=== PATIENT | female | born 1975 | race Caucasian/White ===

== ENCOUNTER 2024-06-12 07:56 | Outpatient (CLI) | payer OTHER, SELFPAY ==
--- NOTE | ~2024-06-12 | US_ITS ---
US pelvic complete w TV Ordering provider: Marcelino Mckeon, History: . dysfunctional uterine bleeding . Comparison: None. Technique: Transabdominal and endovaginal ultrasound of the pelvis (Doppler ultrasound interrogation techniques used as needed for this exam.) FINDINGS: CERVIX: Nabothian cysts. UTERUS: Measures 10.3x 6x 5.6 cm in length which is within normal limits and is anteverted. Hypoecho ic area is seen in the endometrial cavity with echogenic ring measuring 1 cm. Multiple Fibroids seen in the uterus measuring around 2 cm. ENDOMETRIUM: Normal in thickness measuring 15.4 mm. No endometrial cysts or fluid. CUL DE SAC: No free fluid. RIGHT OVARY: Normal in size measuring 2.6x 2.4x 2 cm. Normal echotexture. Doppler vascular flow prese nt. LEFT OVARY: Normal in size measuring 3.1x 2.3 x 1.6 cm. Normal echotexture. Doppler vascular flow pre sent. ADNEXA: Left adnexal cyst measuring 2 x 1.7 x 1.5 cm. IMPRESSION: Hypoechoic area with hyperechoic surrounding is seen in the endometrial cavity which may be a polyp o r fibroid. Follow-up advised. Multiple fibroids. Nabothian cysts. Left ovarian cyst. Otherwise, christin l pelvic ultrasound. Reviewed, dictated and finalized at location A. IMPRESSION: Hypoechoic area with hyperechoic surrounding is seen in the endometrial cavity which may be a polyp or fibroid. Follow-up advised. Multiple fibroids. Nabothia n cysts. Left ovarian cyst. Otherwise, normal pelvic ultrasound.
== END 2024-06-12 07:57 ==
PROVIDERS: PCP Family Medicine; Visit Provider Family Medicine
DX: N93.8 Other specified abnormal uterine and vaginal bleeding (principal); R93.89 Abnormal findings on diagnostic imaging of other specified body structures
CPT/HCPCS: 76830; 76856

== ENCOUNTER 2024-06-15 09:59 | Outpatient (CLI) | payer OTHER, SELFPAY ==
[2024-06-15 10:29] LABS: Hematocrit 37.8 % (37.0-47.0); Hemoglobin 12.1 g/dL (12.0-15.0); Mean Corpuscular Hemoglobin 29.5 pg (26-34); Mean Corpuscular Volume 92.2 fl (80-100); Mean Platelet Volume 10.3 fl (7.4-10.4); Platelet Count Result 266 k/mm3 (150-375); Red Cell Distribution Width 13.4 % (11.5-14.5); White Blood Count 4.5 K/mm3 (4.5-10.0)
[2024-06-15 10:54] LABS: Albumin Level 4.3 g/dL (3.5-5.1); Anion Gap 8 mmol/L (4-12); Blood Urea Nitrogen 15 mg/dL (7-17); Calcium 9.2 mg/dL (8.4-10.2); Carbon Dioxide 27 mmol/L (22-30); Chloride 102 mmol/L (98-107); Estimated Glomerular Filt Rate > 60; Glucose 93 mg/dL (65-110); Potassium 5.1 mmol/L (3.4-5.0); Sodium 137 mmol/L (137-145)
[2024-06-15 12:10] LABS: Iron 178 ug/dL (37-170)
[2024-06-16 00:15] LABS: Prealbumin 22.2 mg/dL (17.6-36.0)
[2024-06-19 18:23] LABS: Vitamin B1 7 nmol/L (8-30)
== END 2024-06-15 10:00 | disposition home or self-care (01) ==
PROVIDERS: PCP Family Medicine; Visit Provider Surgery Plastic and Reconstructive Surgery
DX: R63.4 Abnormal weight loss (principal)
CPT/HCPCS: 36415; 80048; 82040; 83540; 84134; 84425; 85027

== ENCOUNTER 2024-06-29 00:01 | Day surgery (SDC) | payer OTHER, SELFPAY ==
--- NOTE | 2024-06-21 16:38 | SUR.PREOP ---
Report to the Outpatient Waiting Room, entrance under the green pavilion located off [facility], at time 0600 on date 06/29/24. Planned Procedure Time: 0730. Time changes happen often and if your time is changed the preop area will call you the afternoon before. - You and your visitor will be asked to self-screen and do not enter if you have any COVID symptoms. - A mask is optional within the hospital at this time. Patients may have clear liquids (water, carbonated beverages, clear teas, apple juice) until 3 hours prior to surgery with a maximum of 20 ounces. - NO CLEAR LIQUIDS AFTER 0430 - No food from midnight until time of surgery - Infants may have breast milk until 4 hours before surgery, formula 6 hours prior to surgery. - Children will be allowed to drink immediately following surgery. If applicable, please bring a bottle or sippy cup to assist with drinking. Juice, water, soda, and popsicles are readily available. For infants on formula, please bring formula the day of surgery. Pacifiers are allowed. Take the following medications with a SIP of water the morning of surgery: N/A DO NOT STOP ANY OF YOUR OTHER PRESCRIPTION MEDICATIONS PRIOR TO SURGERY ?EXCEPT THE FOLLOWING Medications to discontinue per physician N/A Date to take last dose Please no make-up, nail zimbabwean, hairspray, perfume, deodorant, or body powder the day of surgery. No jewelry (including any body piercings) or valuables the day of surgery, leave them at home. Please take a shower or bath the night before, or the morning of, surgery with an antibacterial soap. Wear comfortable, loose fitting clothing. Children are encouraged to wear pajamas. - Jewelry must be removed prior to entering the operating room. Rings and piercings that are not removed may be cut off. - The hospital will not accept responsibility for valuables. - Please leave all valuables, including medications, at home the day of surgery. If you are going home after surgery, a licensed dedicated driver must drive you home. - NO public transportation without another adult if you receive anesthesia. - We recommend that an adult stay with you for 24 hours following discharge. - We also recommend that you do not drive, make important decision, drink alcoholic beverages, or take any drugs that were not prescribed by your health care provider for at least 24 hours after your discharge time. For Pediatric surgeries, we recommend two adults accompany the child home. Follow any additional instructions given to you from your surgeon. If you or anyone in your household have experienced Covid symptoms in the past week, please notify your surgeon or the nurse liaison at the phone number below for possible testing. Telephone instructions given to TAYLER GRAHAM and asked if any additional questions and then verbalized understanding. Patient advised to call surgeon office or pre surgery nurse liaison [phone] if any additional questions.
[2024-06-21 16:49] VITALS: BMI 30.3
[2024-06-29] VITALS (10 sets, daily range): BP systolic 103–116; BP diastolic 67–76; PULSE 66–78; RESP 12–20; TEMP 36.2–36.9; O2SAT 94–100; BMI 30.7
[2024-06-29 12:23] LABS: Urine Cotinine NEGATIVE
--- NOTE | 2024-06-29 12:35 | WPDHPUPDATE1 ---
History and Physical Update Update Date/Time: 06/29/24 12:35 History and Physical has been reviewed, including an updated exam of the patient. There are NO changes in the patient's condition. Risks, benefits, and alternatives have been discussed and questions answered. Patient agrees to proceed with procedure.
--- NOTE | 2024-06-29 12:39 | P.PNAN_ITS ---
Anes - Initial Pre Proc Eval Procedure: Operation Date: 06/29/24 14:30 Proposed Procedures p Bilateral Breast Augmentation, - Ajith Kim MD s Bilateral Breast Mastopexy - Ajith Kim MD Date/Time: 06/29/24 12:39 Surgeon: Ajith Kim MD Pre Op Diagnosis: breast ptosis, micromastia Patient Data Age: 49 Gender: F Height: 1.68 m Weight: 85.3 kg Allergies Allergy/AdvReac Type Severity Reaction Status Date / Time No Known Allergies Verified 06/29/24 12:35 Home Medications Medication Instructions Recorded Confirmed Type methylphenidate HCl 10 mg tablet 10 mg PO BID 06/21/24 06/21/24 History spironolactone 50 mg tablet 50 mg PO BID 06/21/24 06/21/24 History Laboratory Tests 06/29/24 12:08 Cotinine Negative Patient hx anesthesia problems: none Family hx anesthesia problems: none Results Review: All pre-operative results and documents have been reviewed as part of the pre- operative evaluation. [facility] Social History Social History Smoking status: Never smoker Living arrangements: with family Spiritual care concerns: No Anes - Eval Final PreProcedure Day of Procedure 06/29/24 12:39 Patient weight: overweight Heart: regular rate and rhythm Lungs: clear to auscultation Airway: Mallampati scale class II Neurological: alert and oriented Last oral intake: >/= 8 hours ASA classification: II Emergent: no Anesthetic plan: proceed Anesthesia type and monitoring: general ETT and standard monitoring Results Review: All pre-operative results and documents have been reviewed as part of the pre- operative evaluation. Pt very physically active, works out at gym several days weekly, no cp or sob. Spironolactone has been held for 7 days (prev K 5.1). Informed Consent: The patient's anesthetic plan and its attendant risks and benefits were discussed with the patient/family/POA. Questions were solicited and answers provided to the satisfaction of the patient/family/POA.
--- NOTE | 2024-06-29 12:39 | P.OP_ITS ---
Procedure Note - Detailed Date of Procedure 06/29/24 Pre-op Diagnosis breast ptosis, micromastia Post-op Diagnosis Same Procedure Performed Bilateral augmentation mammaplasty Surgeon Ajith Kim MD Anesthesia General Findings Inverted T Superior pedicle Bilateral Marisa Gutiérrez SoftTouch implants 440cc Right - REF# [id number] SN [id number] Left - REF# [id number] SN [id number] Description of Procedure She is here today for bilateral breast augmentation mastopexy. Previously and again today the risks, benefits, alternatives were discussed in extensive detail. I wanted her to be very realistic about the risks involved as well as expectations. We discussed aftercare and what to monitor for. Made sure answered all of her questions to her satisfaction today and consent was obtained. Marked in the preoperative holding area with their verification. The patient was taken to the operating room placed supine on the operating table. Anesthesia was provided by anesthesiology. A surgical time-out was taken. We cleansed the skin and 1% lidocaine and 0.25% Marcaine with epinephrine was used anesthetize as a field block. She was prepped and draped in a standard sterile fashion. Tegaderm nipple Caball[place] were placed. A 15 blade used to make an incision just superior to the inframammary fold leaving a cusp of de-epithelized tissue at the t junction. Dissection was continued until the chest wall as identified. I incised the pectoralis major along its inferior border and completely released the inferior border leaving the medial border intact. I created a subpectoral pocket in the appropriate dimensions based on our preoperative planning for the implant. I then copiously irrigated with saline solution and verified a strict hemostasis. Next the use a triple antibiotic and Betadine containing solution to irrigate the pocket. I washed my gloves with the triple antibiotic and Betadine solution. We washed the implant immediately upon opening it with this solution and only opened it when we needed it. I used implant funnel and no-touch audrey hnique. The implant was introduced into the pocket using the funnel. Having verified positioning of the implant this was closed using 2-0 PDS. I tailor tacked the breast into position. Placed her in a sitting position. Verified the nipple-areolar location based on preoperative planning as well as intraoperative observations and measurements in full agreement. She was placed supine. I de-epithelialized the pedicle. I then removed the inferior central portion of the breast need making sure the implant was well protected. I elevated medial and lateral tissue flaps as well for planned closure. I closed along the IMF with 2-0 Stratafix. Along the vertical with 2-0 PDS. I closed around the areola with 3-0 strata fix. 3-0 Monocryl along the vertical. 3-0 Stratafix along the IMF. I finally closed everything with running subcuticular 4-0 Monocryl and tissue glue. Fluffs and surgical bra were placed. Estimated Blood Loss 75 Drains No Packing No Pathology None sent Complications No immediate complications Condition Stable Disposition PACU
[2024-06-29 12:53] LABS: BEDSIDEPREGUCG Negative
[2024-06-29] MEDS: TRANEXAMIC ACID 1,000MG/ISO100 1,000 MG/100 ML BAG 200 MG IVPB (12:55)
[2024-06-29] MEDS: LACTATED RINGERS 1,000 ML 30 ML IV CONT ×2 (13:00→15:16)
[2024-06-29] MEDS: ceFAZolin 2 GM/D5W 50 ML 2 GM/50 ML BAG IVPB (13:06)
[2024-06-29] MEDS: NACL 0.9% IRRIG POUR BOTTLE 900 ML, GENTAMICIN SULFATE INJ 160 MG, ceFAZolin 2 GM, POVI... IRRIGATION (13:13)
[2024-06-29] MEDS: LIDO 1%/EPINEPHRINE 1:100,000 20 ML VIAL 40 ML INFILTRATE (13:15)
[2024-06-29] MEDS: BUPivacaine HCL 0.25% PF 30 ML VIAL 40 ML INFILTRATE (13:15)
[2024-06-29] MEDS: fentaNYL CITRATE INJ (*CRX) 100 MCG/2 ML VIAL 25 MCG IV PUSH ×4 (15:39→15:52)
--- NOTE | 2024-06-29 15:51 | SUR.PHASEI ---
Simple mask removed at 1550.
== END 2024-06-29 17:25 | disposition home or self-care (01) ==
PROVIDERS: PCP Family Medicine; Visit Provider Surgery Plastic and Reconstructive Surgery
PROC: (CPT 19325; principal; 2024-06-29 14:30)
PROC: (CPT 19316; 2024-06-29 14:30)
DX: Z41.1 Encounter for cosmetic surgery (principal); N64.81 Ptosis of breast; N64.82 Hypoplasia of breast
CPT/HCPCS: 19325; 80307; J0171; J0690; J1100; J1170; J1580; J2250; J2405; J2704; J3010; J7120